=== PATIENT | male | born 1995 | race Caucasian/White ===

== ENCOUNTER 2020-11-08 15:45 | Emergency (ER) | payer SELFPAY ==
[~2020-11-08] VITALS: Ht 180.3 cm; Wt 77.3 kg
[2020-11-08 15:47] VITALS: BP 124/66
== END 2020-11-08 16:15 ==
LOC: ER 15:46
DX: Z00.00 Encounter for general adult medical examination without abnormal findings (principal); R58 Hemorrhage, not elsewhere classified
CPT/HCPCS: 99283

== ENCOUNTER 2021-03-10 19:36 | Emergency (ER) | payer OTHER ==
[~2021-03-10] VITALS: Ht 177.8 cm; Wt 77.3 kg
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
--- NOTE | 2021-03-10 20:49 | NUR ---
PA at the bedside to evaluate the patient. PA given a report.
--- NOTE | 2021-03-10 21:05 | NUR ---
Patient's cell phone number is [phone].
[2021-03-10 21:16] VITALS: BP 114/83
== END 2021-03-10 21:23 | disposition home or self-care (01) ==
LOC: ER 19:36
DX: R53.83 Other fatigue (principal); Z00.00 Encounter for general adult medical examination without abnormal findings
CPT/HCPCS: 99283

== ENCOUNTER 2021-03-13 19:27 | Emergency (ER) | payer MEDICAID, OTHER ==
[~2021-03-13] VITALS: Ht 175.3 cm; Wt 77.3 kg
[2021-03-13 20:25] VITALS: BP 134/74
--- NOTE | 2021-03-13 23:46 | NUR ---
simple dressing on toe, ice pack given.
== END 2021-03-13 23:49 | disposition home or self-care (01) ==
LOC: ER 19:28
DX: S93.602A Unspecified sprain of left foot, initial encounter (principal); X58.XXXA Exposure to other specified factors, initial encounter; Y93.89 Activity, other specified; Y92.89 Other specified places as the place of occurrence of the external cause; Y99.8 Other external cause status
CPT/HCPCS: 73630; 99283